=== PATIENT | male | born 2000 | race Caucasian/White ===

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

== ENCOUNTER 2018-12-05 19:57 | Emergency (ER) | payer MEDICAID, SELFPAY ==
[~2018-12-05] VITALS: Ht 180.3 cm; Wt 73.2 kg
[2018-12-05 20:01] VITALS: BP 121/60
[2018-12-05] MEDS ORDERED: CLOT15CR10 TP (20:57)
== END 2018-12-05 21:06 | disposition home or self-care (01) ==
LOC: ER 19:58
DX: R21 Rash and other nonspecific skin eruption (principal); Z79.899 Other long term (current) drug therapy
CPT/HCPCS: 99282

== ENCOUNTER 2018-12-12 18:38 | Emergency (ER) | payer MEDICAID ==
[~2018-12-12] VITALS: Ht 180.3 cm; Wt 76.8 kg
[~2018-12-12 18:38] MED LIST changes: +CLOT15CR10 TP
[2018-12-12 19:51] LABS: CLARITY,URINE CLEAR (Clear); COLOR,URINE YELLOW (Yellow); GLUCOSE, URINE NEGATIVE (Neg); KETONES,URINE NEGATIVE (Neg); LEUKOCYTE ESTERASE ,URINE NEGATIVE (Neg); NITRITES, URINE NEGATIVE (Neg); OCCULT BLOOD,URINE NEGATIVE (Neg); PROTEIN,URINE 30 mg/dl (Neg); UROBILINOGEN,URINE 0.2 E.U/dL (0.2-1.0)
[2018-12-12 19:54] LABS: UA COLLECTION TYPE CLN CATCH MIDSTREAM
[2018-12-12 19:57] LABS: BACTERIA,URINE NONE SEEN /HPF (Neg); RBC,URINE 0-2 /HPF (0-2); SQUAMOUS EPITHELIAL CELL,UR FEW /LPF (FEW); WBC,URINE NONE SEEN /HPF (0-4)
[2018-12-12 19:58] LABS: URINE AMPHETAMINE SCREEN NEGATIVE (Neg); URINE BARBITUATE SCREEN NEGATIVE (Neg); URINE BENZODIAZEPINES SCREEN NEGATIVE (Neg); URINE CANNABINOID SCREEN POSITIVE (Neg); URINE COCAINE SCREEN NEGATIVE (Neg); URINE METHADONE SCREEN NEGATIVE (Neg); URINE OPIATE SCREEN NEGATIVE (Neg); URINE PHENCYCLIDINE SCREEN NEGATIVE (Neg)
[2018-12-12 20:23] VITALS: BP 131/74
== END 2018-12-12 20:26 | disposition home or self-care (01) ==
LOC: ER 18:39
DX: R42 Dizziness and giddiness (principal); T40.7X5A Adverse effect of cannabis (derivatives), initial encounter; R41.0 Disorientation, unspecified; F22 Delusional disorders; Z79.899 Other long term (current) drug therapy; Y92.89 Other specified places as the place of occurrence of the external cause
CPT/HCPCS: 80305; 81001; 99283

== ENCOUNTER 2020-09-22 13:13 | Emergency (ER) | payer MEDICAID ==
[~2020-09-22] VITALS: Ht 180.3 cm; Wt 72.3 kg
[2020-09-22 13:29] VITALS: BP 110/62
[2020-09-22] MEDS ORDERED: CEPH-585 PO (14:02)
== END 2020-09-22 14:08 | disposition home or self-care (01) ==
LOC: ER 13:13
DX: L01.00 Impetigo, unspecified (principal); F12.90 Cannabis use, unspecified, uncomplicated; Z79.899 Other long term (current) drug therapy
CPT/HCPCS: 99283